=== PATIENT | female | born 1945 | race American Indian/Alaskan Native ===

== ENCOUNTER 2021-10-04 11:29 | Emergency (ER) | payer MEDICARE ==
--- NOTE | 2021-10-04 12:43 | Emergency Department Report ---
HPI - General Chief Complaint: Medical Clearance Time Seen by Provider: 10/04/21 12:29 - HPI HPI: Room 7 The patient is a 76-year-old female present with a chief complaint of needing colostomy care. The patient is status post colostomy secondary to colon CA last month. Patient states she ran out of colostomy bags. Patient states she contacted her insurance company but she needs approval from a physician in order to have more. Patient comes emergency department for colostomy care. Patient has local irritation around the stoma states erythema has been present for approximately 3 weeks. Patient states she has been unable to contact her [facility] Past Medical Hx - Past Medical History Hx Hypertension: Yes Hx of Cancer: Yes (Colon CA) - Surgical History Additional Surgical History: Colectomy, colostomy - Family History Family history: no significant - Social History Smoking Status: Never Smoker Substance Use Type: None - Medications Home Medications: Home Medications Medication Instructions Recorded Confirmed Last Taken Type Colostomy Bags [Karaya Seal Closed 1 each MC QDAY #60 each 10/04/21 Unknown Rx Stoma Pouch] cephALEXin [Keflex] 500 mg PO Q6HR #28 capsule 10/04/21 Unknown Rx ED Review of Systems ROS: Stated complaint: COL BAG IRRIATATION/LEAKING Other details as noted in HPI Constitutional: denies: fever Eyes: denies: eye pain ENT: denies: throat pain Respiratory: no symptoms reported Cardiovascular: denies: chest pain Endocrine: no symptoms reported Gastrointestinal: denies: abdominal pain Genitourinary: denies: dysuria Musculoskeletal: denies: back pain Skin: rash Physical Exam - Physical Exam Vital Signs: Vital Signs 10/04/21 11:39 Temperature 97.4 F L Pulse Rate 92 H Respiratory 18 Rate Blood Pressure 138/94 [Right] O2 Sat by Pulse 97 Oximetry Physical Exam: GENERAL: The patient is well-developed well-nourished female lying on stretcher not appearing to be in acute distress. [] HEENT: Normocephalic. Atraumatic. Extraocular motions are intact. Patient has moist mucous membranes. NECK: Supple. Trachea midline CHEST/LUNGS: Clear to auscultation. There is no respiratory distress noted. HEART/CARDIOVASCULAR: Regular. There is no tachycardia. There is no gallop rub or murmur. ABDOMEN: Abdomen is soft, and nondistended. There is erythema and excoriation surrounding stoma site. Patient has normal bowel sounds. There is no abdominal distention. SKIN: There is erythema and excoriation surrounding stoma site NEURO: The patient is awake, alert, and oriented. The patient is cooperative. The patient has no focal neurologic deficits. The patient has normal speech. GCS 15 MUSCULOSKELETAL: There is no evidence of acute injury. ED Course Vital Signs 10/04/21 11:39 Temperature 97.4 F L Pulse Rate 92 H Respiratory 18 Rate Blood Pressure 138/94 [Right] O2 Sat by Pulse 97 Oximetry ED Medical Decision Making - Lab Data Result diagrams: 10/04/21 12:51 10/04/21 12:51 Laboratory Tests 10/04/21 10/04/21 12:51 12:51 WBC 9.5 RBC 4.57 Hgb 12.2 Hct 37.6 MCV 82 MCH 27 L MCHC 33 RDW 21.3 H Plt Count 344 Lymph % (Auto) 18.7 [place] % (Auto) 6.3 Eos % (Auto) 1.4 Baso % (Auto) 0.5 Lymph # (Auto) 1.8 [place]iba # (Auto) 0.6 Eos # (Auto) 0.1 Baso # (Auto) 0.0 Seg Neutrophils % 73.1 H Seg Neutrophils # 7.0 Sodium 140 Potassium 4.1 Chloride 105.6 Carbon Dioxide 18 L Anion Gap 21 BUN 30 H Creatinine 1.1 Estimated GFR 48 BUN/Creatinine Ratio 27 Glucose 131 H Calcium 10.7 H - Differential Diagnosis Colostomy bag, skin excoriation Critical care attestation.: If time is entered above; I have spent that time in minutes in the direct care of this critically ill patient, excluding procedure time. ED Disposition Clinical Impression: Colostomy care, Excoriation of periwound skin Disposition: HOME / SELF CARE / HOMELESS Is pt being admited?: No Does the pt Need Aspirin: No Condition: Stable Additional Instructions: Return to the emergency department should you develop worsening symptoms, inability to tolerate food or liquids, high fever or any other concerns Prescriptions: Colostomy Bags [Karaya Seal Closed Stoma Pouch] 1 each MC QDAY #60 each cephALEXin [Keflex] 500 mg PO Q6HR #28 capsule Referrals: Dr. Albrecht, your surgeon [Other] - 3-5 Days Time of Disposition: 13:57
[2021-10-04 13:27] LABS: Basophils % (Auto) 0.5 % (0.0-1.8); Eosinophils # (Auto) 0.1 K/mm3 (0.0-0.4); Eosinophils % (Auto) 1.4 % (0.0-4.3); Hematocrit 37.6 % (30.3-42.9); Hemoglobin 12.2 gm/dl (10.1-14.3); Lymphocytes # (Auto) 1.8 K/mm3 (1.2-5.4); Lymphocytes % (Auto) 18.7 % (13.4-35.0); Mean Corpuscular HGB Conc 33 % (30-34); Mean Corpuscular Volume 82 fl (79-97); Monocytes # (Auto) 0.6 K/mm3 (0.0-0.8); Monocytes % (Auto) 6.3 % (0.0-7.3); Platelet Count 344 K/mm3 (140-440); Red Blood Count 4.57 M/mm3 (3.65-5.03)
[2021-10-04 13:31] LABS: Calcium 10.7 mg/dL (8.4-10.2)
[2021-10-04 13:39] LABS: Red Cell Distribution Width 21.3 % (13.2-15.2)
[2021-10-04 15:04] VITALS: BP 140/81
== END 2021-10-04 15:08 | disposition home or self-care (01) ==
LOC: ED 11:29
DX: Z43.3 Encounter for attention to colostomy (principal); F42.4 Excoriation (skin-picking) disorder; I10 Essential (primary) hypertension; Z85.038 Personal history of other malignant neoplasm of large intestine; Z98.890 Other specified postprocedural states
CPT/HCPCS: 36415; 80048; 85025; 99283